=== PATIENT | female | born 1950 | race Caucasian/White ===

== ENCOUNTER 2016-04-13 09:45 | Emergency (ER) | payer MEDICARE, BC ==
[2016-04-13 09:58] VITALS: RESP 18
[2016-04-13] MEDS ORDERED: RX INFO: IV CONTRAST WAS GIVEN 1 EACH MISC MISCELLANE PRN (10:09)
--- NOTE | 2016-04-13 10:23 | ED ---
Abdominal Pain HPI - General Chief Complaint: Abdominal Pain Stated Complaint: bleeding post op, ostomy Time Seen by Provider: 04/13/16 10:02 Source: patient Mode of arrival: wheelchair Limitations: no limitations - History of Present Illness Initial Comments: This is a 66-year-old female with a history of rectal cancer status post resection with a ostomy and she had subsequent development of a mucocutaneous fistula. She is being followed by Dr. Todd Martinez. She's had the ostomy for approximate 7 years and she's had become cutaneous fistula for quite some time as well. She has been deemed not candidate for surgical intervention because of her heavy smoking history and breathing issues. The patient states that last night she was lifting nothing heavier and felt a little bit more pain around the site of the fistula. Also started oozing blood last night. Her sister covered with a nonadherent dressing and try to get her in to Dr. Ying's office however was unable to get her in. She was directed to the emergency department the patient does admit to generalized abdominal discomfort for the last few days. She denies any nausea or vomiting. She's had normal output from the ostomy. No bleeding or problems with the ostomy. No lightheadedness or chest pain. No other complaints. - Related Data Home Medications Medication Instructions Recorded Confirmed Albuterol Inhaler [Ventolin Hfa 1 - 2 puff INHALATION RT-Q4H PRN 04/13/16 Inhaler] Citalopram Hydrobromide [CeleXA] 40 mg PO DAILY 04/13/16 04/13/16 Fluticasone/Vilanterol [Breo 1 inhalation PO RT-DAILY 04/13/16 04/13/16 Ellipta 100-25 Mcg Inhaler] Ibuprofen [Motrin] 400 - 800 mg PO Q6HR PRN 04/13/16 04/13/16 Mirtazapine [Remeron] 15 mg PO HS 04/13/16 04/13/16 Tiotropium 18 Mcg/Puff [Spiriva] 1 cap INHALATION RT-DAILY 04/13/16 04/13/16 metFORMIN HCL [Glucophage] 500 mg PO BID 04/13/16 04/13/16 Previous Rx's Medication Instructions Recorded HYDROcodone/APAP 5-325MG [[place] 1 tab PO Q6HR PRN #15 tab 04/13/16 5-325] Allergies Allergy/AdvReac Type Severity Reaction Status Date / Time No Known Allergies Allergy Verified 04/13/16 10:13 Review of Systems ROS Statement: Those systems with pertinent positive or pertinent negative responses have been documented in the HPI. ROS Other: All systems not noted in ROS Statement are negative. Past Medical History Past Medical History: COPD, Diabetes Mellitus, Sleep Apnea/CPAP/BIPAP History of Any Multi-Drug Resistant Organisms: None Reported Past Surgical History: Bowel Resection Additional Past Surgical History / Comment(s): ilieostomy rectal mass Past Psychological History: Depression Smoking Status: Current every day smoker Past Alcohol Use History: None Reported Past Drug Use History: None Reported General Exam - General Exam Comments Initial Comments: Constitutional: Awake alert Appears comfortable Head: Normocephalic atraumatic Eyes: no conjunctival injection No scleral icterus EOMI Neck: No JVD Supple Heart: Regular rate rhythm normal S1-S2 no murmurs Lungs: Clear to auscultation bilaterally No wheezing No rales Abdomen: Soft, left sided abdominal ostomy appears patent and is draining stool. There is a fistula present just midline to the ostomy that does not appear to be draining any fluid. Has some mild oozing of blood. It appears that the dermis is split around the fistula. There is underlying herniation as well. The patient does have some generalized abdominal discomfort however no rebound or guarding Extremities: Non edematous DP pulses intact Radial pulses intact Neuro: A&Ox3 No focal neurologic deficits Psych: Appropriate mood and affect Limitations: no limitations Course Vital Signs 04/13/16 09:52 Temperature 98.4 F Pulse Rate 73 Respiratory 18 Rate Blood Pressure 136/70 O2 Sat by Pulse 93 L Oximetry Medical Decision Making - Medical Decision Making This is a 66-year-old female who presents emergency department for bleeding from a known fistula. It looks like the skin was split at that area. Labwork was reviewed and unremarkable for any anemia or leukocytosis. Computed tomography scan did not show any acute findings. I spoke with Dr. Ellington who is on-call for Dr. Todd Martinez and recommended follow-up next week. I did give the patient some pain medication for her abdominal pain that she can use as needed. Otherwise she can follow-up with Dr. Todd Martinez. She can return if she has worsening symptoms are all questions were answered. - Lab Data Result diagrams: 04/13/16 11:00 04/13/16 11:00 Lab Results 04/13/16 04/13/16 04/13/16 Range/Units 11:00 11:00 11:00 WBC 7.6 (3.8-10.6) k/uL RBC 4.64 (3.80-5.40) m/uL Hgb 13.2 (11.4-16.0) gm/dL Hct 41.4 (34.0-46.0) % MCV 89.2 (80.0-100.0) fL MCH 28.5 (25.0-35.0) pg MCHC 32.0 (31.0-37.0) g/dL RDW 13.9 (11.5-15.5) % Plt Count 130 L (150-450) k/uL Neutrophils % 74 % Lymphocytes % 16 % Monocytes % 6 % Eosinophils % 2 % Basophils % 1 % Neutrophils # 5.6 (1.3-7.7) k/uL Lymphocytes # 1.2 (1.0-4.8) k/uL Monocytes # 0.5 (0-1.0) k/uL Eosinophils # 0.2 (0-0.7) k/uL Basophils # 0.0 (0-0.2) k/uL Sodium 137 (137-145) mmol/L Potassium 4.9 (3.5-5.1) mmol/L Chloride 104 (98-107) mmol/L Carbon Dioxide 25 (22-30) mmol/L Anion Gap 8 mmol/L BUN 10 (7-17) mg/dL Creatinine 0.60 (0.52-1.04) mg/dL Est GFR (MDRD) Af Amer >60 (>60 ml/min/1.73 sqM) Est GFR (MDRD) Non-Af >60 (>60 ml/min/1.73 sqM) Glucose 261 H (74-99) mg/dL Calcium 8.8 (8.4-10.2) mg/dL Total Bilirubin 1.0 (0.2-1.3) mg/dL AST 127 H (14-36) U/L ALT 90 H (9-52) U/L Alkaline Phosphatase 210 H (38-126) U/L Total Protein 6.9 (6.3-8.2) g/dL Albumin 3.7 (3.5-5.0) g/dL Amylase 33 (30-110) U/L Lipase 113 (23-300) U/L Blood Type O Positive Blood Type Recheck No Antibody Screen NEGATIVE Spec Expiration Date 04/16/2016 - 2299 Disposition Clinical Impression: Cutaneous fistula, Abdominal pain Disposition: HOME SELF-CARE Condition: Stable Instructions: Abdominal Pain (ED) Prescriptions: HYDROcodone/APAP 5-325MG [[place] 5-325] 1 tab PO Q6HR PRN #15 tab PRN Reason: Pain Referrals: Romario Maldonado DO [Primary Care Provider] - 1-2 days
[2016-04-13 11:23] LABS: Basophils % (A) 1 %; CH 29.1; CHCM 32.8; Eosinophils # (A) 0.2 k/uL (0-0.7); Eosinophils % (A) 2 %; HCT 41.4 % (34.0-46.0); HDW 2.41; HGB 13.2 gm/dL (11.4-16.0); Luc # (Auto) 0.09; Luc % (Auto) 1; Lymphocytes # (A) 1.2 k/uL (1.0-4.8); Lymphocytes % (A) 16 %; MCH 28.5 pg (25.0-35.0); MCV 89.2 fL (80.0-100.0); Mean Platelet Volume 9.3; Monocytes # (A) 0.5 k/uL (0-1.0); Monocytes % (A) 6 %; Neutrophils # (A) 5.6 k/uL (1.3-7.7); Neutrophils % (A) 74 %; RBC 4.64 m/uL (3.80-5.40); RDW 13.9 % (11.5-15.5); WBC 7.6 k/uL (3.8-10.6); WBC (Perox) 7.62
[2016-04-13 11:26] LABS: ALT 90 U/L (9-52); AST 127 U/L (14-36); Alkaline Phosphatase 210 U/L (38-126); Amylase 33 U/L (30-110); Anion Gap 8 mmol/L; Blood Urea Nitrogen 10 mg/dL (7-17); Calcium 8.8 mg/dL (8.4-10.2); Carbon Dioxide 25 mmol/L (22-30); Chloride 104 mmol/L (98-107); Glucose 261 mg/dL (74-99); Non-African American GFR(MDRD) >60 (>60 ml/min/1.73 sqM); Potassium 4.9 mmol/L (3.5-5.1); Sodium 137 mmol/L (137-145); Total Protein 6.9 g/dL (6.3-8.2)
--- NOTE | 2016-04-13 12:12 | CT ---
EXAMINATION TYPE: CT abdomen pelvis w con DATE OF EXAM: 04/13/2016 12:00 PM HISTORY: stoma pain and bleeding CT DLP: 1595mGycm Automated Exposure Control for Dose Reduction was Utilized. CONTRAST: CT scan of the abdomen and pelvis is performed without oral but with IV Contrast, patient injected wi th 100 mL of Omnipaque 300. COMPARISON: None. FINDINGS: LUNG BASES: Some linear scarring and/or atelectatic change in both lung bases is noted. LIVER/GB: Gallbladder is not visualized and presumed surgically absent. Liver is low dense suggesting fatty infiltration. PANCREAS: No significant abnormality is seen. SPLEEN: No significant abnormality is seen. ADRENALS: No significant abnormality is seen. KIDNEYS: No significant abnormality is seen. BOWEL: Evaluation of bowel is suboptimal due to lack of enteric contrast. There is however no suspici ous small or large bowel dilatation. Decompressed stomach is evident. There is left mid abdominal ostomy. There is a small parastomal hernia containing nondilated bowel in ferior and medial to ostomy. Just inferior to this there is a [place] ventral wall hernia extending to right of midline containing portion of nondilated small and large bowel loops. UTERUS/ADNEXA: There is suboptimal evaluation due to streak artifact from hip surgery in the lower ut erine segment. Visualized superior portion of uterus is within normal limits. No suspicious adnexal m asses are identified. LYMPH NODES: No greater than 1cm abdominal or pelvic lymph nodes are appreciated. OSSEOUS STRUCTURES: Metallic hardware from bilateral hip arthroplasties causes streak artifact limiti ng evaluation of pelvic structures. Some disc space narrowing with vacuum disc phenomenon at lumbosac ral junction is noted. Facet arthropathy lower lumbar levels is seen. OTHER: There is fat-containing ventral wall hernia in the midline above the umbilicus. There is mild to moderate atherosclerotic change of aorta. Slight ectasia of the infrarenal abdominal aorta is present. No greater than 3 cm aneurysmal change is seen. IMPRESSION: There is parastomal hernia and several ventral wall hernias, no bowel obstruction is evid ent. No significant finding is seen to account for parastomal bleeding.
[2016-04-13 12:34] VITALS: PULSE 68
[2016-04-13 13:03] VITALS: BP 131/89; TEMP 98.3
== END 2016-04-13 13:03 | disposition home or self-care (01) ==
LOC: EC 09:45
DX: K63.2 Fistula of intestine (principal); R10.9 Unspecified abdominal pain; G47.30 Sleep apnea, unspecified; J44.9 Chronic obstructive pulmonary disease, unspecified; E11.9 Type 2 diabetes mellitus without complications; F32.9 Major depressive disorder, single episode, unspecified; F17.200 Nicotine dependence, unspecified, uncomplicated; Z93.2 Ileostomy status; Z79.84 Long term (current) use of oral hypoglycemic drugs; Z85.048 Personal history of other malignant neoplasm of rectum, rectosigmoid junction, and anus; Z79.899 Other long term (current) drug therapy
CPT/HCPCS: 36415; 86900; 86901; 80053; 82150; 83690; 85025; 86850; 74177; 99284; Q9967

== ENCOUNTER 2016-04-23 10:17 | Emergency (ER) | payer MEDICARE, BC ==
--- NOTE | 2016-04-23 10:51 | ED ---
General Adult HPI - General Chief complaint: Recheck/Abnormal Lab/Rx Stated complaint: FISTULA OUTPUTTING BLOODCLOTS Time Seen by Provider: 04/23/16 10:36 Source: patient Mode of arrival: ambulatory Limitations: no limitations - History of Present Illness Initial comments: Patient is a 66-year-old female with history of COPD, diabetes, colon cancer status post bowel resection with Dr. Todd Martinez presenting with bleeding from mucous cutaneous fistula. Patient states sore has been there for several weeks now - at least 4-5 weeks. Patient states her sore will intermittently bleed. Patient is not on aspirin or Coumadin. Patient states she's had several episodes over the past 10 days from her last ER visit. Patient had an unremarkable CAT scan at that time. Hemoglobin was 13.2. She is able to control it with direct pressure but does notice when it bleeds or clots. Patient follow-up with Dr. Todd Martinez on Monday for which she recommended patient to see Dr. Costello. Patient denies fever, chills, chest pain, shortness breath. Admits to normal stool output. - Related Data Home Medications Medication Instructions Recorded Confirmed Albuterol Inhaler [Ventolin Hfa 1 - 2 puff INHALATION RT-Q4H PRN 04/13/16 Inhaler] Citalopram Hydrobromide [CeleXA] 40 mg PO DAILY 04/13/16 04/23/16 Fluticasone/Vilanterol [Breo 1 inhalation PO RT-DAILY 04/13/16 04/23/16 Ellipta 100-25 Mcg Inhaler] Ibuprofen [Motrin] 400 - 800 mg PO Q6HR PRN 04/13/16 04/23/16 Mirtazapine [Remeron] 15 mg PO HS 04/13/16 04/23/16 Tiotropium 18 Mcg/Puff [Spiriva] 1 cap INHALATION RT-DAILY 04/13/16 04/23/16 metFORMIN HCL [Glucophage] 500 mg PO BID 04/13/16 04/23/16 Previous Rx's Medication Instructions Recorded HYDROcodone/APAP 5-325MG [[place] 1 tab PO Q6HR PRN #15 tab 04/13/16 5-325] Dicyclomine [Bentyl] 20 mg PO QID #20 tablet 04/23/16 Allergies Allergy/AdvReac Type Severity Reaction Status Date / Time No Known Allergies Allergy Verified 04/23/16 10:30 Review of Systems ROS Statement: Those systems with pertinent positive or pertinent negative responses have been documented in the HPI. Constitutional: No fever and no chills. HENT: No congestion, no rhinorrhea and no sore throat. Eyes: No discharge and no redness. Respiratory: No cough and no shortness of breath. Cardiovascular: No chest pain and no palpitations. Gastrointestinal: No nausea, +vomiting intermittently which is normal for her, no abdominal pain and no diarrhea. Genitourinary: No dysuria and no hematuria. Musculoskeletal: No back pain and no arthralgias. Skin: +wound, No pallor and no rash. Neurological: No dizziness and No headaches. ROS Other: All systems not noted in ROS Statement are negative. Past Medical History Past Medical History: COPD, Diabetes Mellitus, Sleep Apnea/CPAP/BIPAP History of Any Multi-Drug Resistant Organisms: None Reported Past Surgical History: Bowel Resection Additional Past Surgical History / Comment(s): ilieostomy rectal mass Past Psychological History: Depression Smoking Status: Current every day smoker Past Alcohol Use History: None Reported Past Drug Use History: None Reported General Exam - General Exam Comments Initial Comments: Constitutional: Patient appears well-developed and well-nourished. No distress. Head: Normocephalic and atraumatic. Eyes: Conjunctivae and EOM are normal. Right eye exhibits no discharge. Left eye exhibits no discharge. No scleral icterus. Neck: Normal range of motion. Neck supple. Cardiovascular: Normal rate and regular rhythm. No murmur heard. Pulmonary/Chest: Effort normal and breath sounds normal. No respiratory distress. No wheezes. Abdominal: Abdomen is soft. Post surgical changes to abdomen. Left lower colostomy with stool output. Stoma is pink. Midline scar present with mucous cutaneous fistula right of midline approximately 3 cm. No active bleeding but pink. Right of midline abdominal hernia which is reducible. Musculoskeletal: Normal range of motion. No edema or tenderness. Neurological: Patient alert and oriented to person, place, and time. Skin: Skin is warm and dry. Not diaphoretic. Non-pallor. Nursing notes and vitals reviewed. Limitations: no limitations Course Vital Signs 04/23/16 10:25 Temperature 99.1 F Pulse Rate 76 Respiratory 18 Rate Blood Pressure 129/62 O2 Sat by Pulse 93 L Oximetry - Reevaluation(s) Reevaluation #1: 04/23/16 12:03 Patient without any further bleeding while here. Updated on results and agreeable to outpatient follow-up. Medical Decision Making - Medical Decision Making Patient is a 66-year-old female presenting with mucous cutaneous fistula and bleeding episodes. Patient is not anticoagulated or on full aspirin. Patient without bleeding on initial evaluation. No further bleeding or course of visit. Patient's hemoglobin 10 days ago was 13.2 tenths 14.4. Patient with abdominal x-ray unremarkable for ileus or small bowel obstruction. Patient requesting something for crampy abdominal pain for which RX for Bentyl was provided. Prior to discharge, patient was resting comfortably in bed. Course of stay improved. Denies pain. Discussed physical exam and diagnostic tests with patient. Questions answered and patient is agreeable to discharge with close follow up with Primary Care Physician/GI. Instructed to return to Emergency Department if symptoms worsen. - Lab Data Result diagrams: 04/23/16 11:05 04/23/16 11:05 Lab Results 04/23/16 04/23/16 04/23/16 Range/Units 11:05 11:05 11:05 WBC 11.1 H (3.8-10.6) k/uL RBC 5.04 (3.80-5.40) m/uL Hgb 14.4 (11.4-16.0) gm/dL Hct 45.6 (34.0-46.0) % MCV 90.4 (80.0-100.0) fL MCH 28.5 (25.0-35.0) pg MCHC 31.5 (31.0-37.0) g/dL RDW 14.2 (11.5-15.5) % Plt Count 211 (150-450) k/uL Neutrophils % 73 % Lymphocytes % 16 % Monocytes % 7 % Eosinophils % 2 % Basophils % 0 % Neutrophils # 8.1 H (1.3-7.7) k/uL Lymphocytes # 1.8 (1.0-4.8) k/uL Monocytes # 0.8 (0-1.0) k/uL Eosinophils # 0.2 (0-0.7) k/uL Basophils # 0.0 (0-0.2) k/uL Hypochromasia Slight Sodium 141 (137-145) mmol/L Potassium 4.8 (3.5-5.1) mmol/L Chloride 108 H (98-107) mmol/L Carbon Dioxide 23 (22-30) mmol/L Anion Gap 10 mmol/L BUN 13 (7-17) mg/dL Creatinine 0.60 (0.52-1.04) mg/dL Est GFR (MDRD) Af Amer >60 (>60 ml/min/1.73 sqM) Est GFR (MDRD) Non-Af >60 (>60 ml/min/1.73 sqM) Glucose 250 H (74-99) mg/dL Calcium 8.9 (8.4-10.2) mg/dL Blood Type O Positive Blood Type Recheck No Antibody Screen NEGATIVE Spec Expiration Date 04/26/2016 - 2304 Disposition Clinical Impression: Encounter for evaluation of wound, Bleeding, Abdominal cramping Disposition: HOME SELF-CARE Condition: Good Instructions: Abdominal Pain (ED), Acute Wound Care (ED), Wound Healing and Your Diet (ED) Prescriptions: Dicyclomine [Bentyl] 20 mg PO QID #20 tablet Referrals: Romario Maldonado DO [Primary Care Provider] - 1-2 days Delvis Costello MD [STAFF PHYSICIAN] - 1-2 days
[2016-04-23 11:18] LABS: Basophils % (A) 0 %; CH 28.5; CHCM 31.7; Eosinophils # (A) 0.2 k/uL (0-0.7); Eosinophils % (A) 2 %; HCT 45.6 % (34.0-46.0); HGB 14.4 gm/dL (11.4-16.0); Hypochromasia Slight; Luc # (Auto) 0.15; Luc % (Auto) 1; Lymphocytes # (A) 1.8 k/uL (1.0-4.8); Lymphocytes % (A) 16 %; MCH 28.5 pg (25.0-35.0); MCHC 31.5 g/dL (31.0-37.0); MCV 90.4 fL (80.0-100.0); Mean Platelet Volume 7.6; Monocytes # (A) 0.8 k/uL (0-1.0); Monocytes % (A) 7 %; Neutrophils # (A) 8.1 k/uL (1.3-7.7); Neutrophils % (A) 73 %; RBC 5.04 m/uL (3.80-5.40); RDW 14.2 % (11.5-15.5); WBC 11.1 k/uL (3.8-10.6); WBC (Perox) 11.08
[2016-04-23 11:27] LABS: Anion Gap 10 mmol/L; Blood Urea Nitrogen 13 mg/dL (7-17); Calcium 8.9 mg/dL (8.4-10.2); Carbon Dioxide 23 mmol/L (22-30); Chloride 108 mmol/L (98-107); Glucose 250 mg/dL (74-99); Non-African American GFR(MDRD) >60 (>60 ml/min/1.73 sqM); Potassium 4.8 mmol/L (3.5-5.1); Sodium 141 mmol/L (137-145)
--- NOTE | 2016-04-23 11:36 | XR ---
EXAMINATION TYPE: XR abdomen complete w decub DATE OF EXAM: 04/23/2016 11:30 AM CLINICAL HISTORY: Abdominal pain not further specified. TECHNIQUE: Supine, upright, and left side down lateral decubitus views of the abdomen are obtained. COMPARISON: Recent CT abdomen and pelvis study April 13, 2016. FINDINGS: Some paucity of bowel gas is present. Visualized gas is noted in nondistended small and lar ge bowel loops. No suspicious air-fluid levels are seen. Metallic hardware from bilateral hip surgery is partially imaged. There is left basilar scarring or atelectatic change. No pneumoperitoneum is no ondina. IMPRESSION: Overall nonspecific favor nonobstructive bowel gas pattern.
[2016-04-23 12:04] VITALS: BP 134/62; PULSE 73; RESP 16; TEMP 98.2
== END 2016-04-23 12:04 | disposition home or self-care (01) ==
LOC: EC 10:17
DX: T82.838A Hemorrhage due to vascular prosthetic devices, implants and grafts, initial encounter (principal); R10.9 Unspecified abdominal pain; J44.9 Chronic obstructive pulmonary disease, unspecified; E11.9 Type 2 diabetes mellitus without complications; F17.210 Nicotine dependence, cigarettes, uncomplicated; Z79.899 Other long term (current) drug therapy; Z79.51 Long term (current) use of inhaled steroids; Z79.84 Long term (current) use of oral hypoglycemic drugs
CPT/HCPCS: 36415; 74020; 80048; 85025; 86850; 86900; 86901; 99284

== ENCOUNTER 2016-10-31 14:55 | Inpatient (IN) | payer MEDICARE, BC ==
[2016-10-31] MEDS ORDERED: MORPHINE SULFATE 4 MG/ML SYRINGE IVP STA (15:00)
[2016-10-31] MEDS ORDERED: ONDANSETRON 4 MG/2 ML VIAL IVP PRN ×2 (15:00→18:35)
[2016-10-31] MEDS ORDERED: MORPHINE SULFATE 4 MG/ML SYRINGE IVP PRN (15:00)
[2016-10-31] MEDS ORDERED: PANTOPRAZOLE 40 MG/10 ML VIAL IVP STA (15:00)
[2016-10-31] MEDS ORDERED: SODIUM CHLORIDE 0.9% 1,000 ML IV ONE (15:00)
--- NOTE | 2016-10-31 15:04 | ED ---
General Adult HPI - General Stated complaint: Poss Bowel Obs. Time Seen by Provider: 10/31/16 15:00 Source: RN notes reviewed, old records reviewed - History of Present Illness Initial comments: This is a 66-year-old female VFA evaluation. Patient presents today for evaluation of abdominal pain. Patient was sent him in transfer regarding the small bowel obstruction. Patient does follow with surgeon at this hospital. Patient is asked to no output, per transfer records and speaking a transient physician-patient also is having some bowel pain and I CAT scan had small bowel obstruction. Patient suffered this time is no pain. No active nausea or vomiting - Related Data Home Medications Medication Instructions Recorded Confirmed Albuterol Inhaler [Ventolin Hfa 1 - 2 puff INHALATION RT-Q4H PRN 04/13/16 Inhaler] Citalopram Hydrobromide [CeleXA] 40 mg PO DAILY 04/13/16 04/23/16 Fluticasone/Vilanterol [Breo 1 inhalation PO RT-DAILY 04/13/16 04/23/16 Ellipta 100-25 Mcg Inhaler] Ibuprofen [Motrin] 400 - 800 mg PO Q6HR PRN 04/13/16 04/23/16 Mirtazapine [Remeron] 15 mg PO HS 04/13/16 04/23/16 Tiotropium 18 Mcg/Puff [Spiriva] 1 cap INHALATION RT-DAILY 04/13/16 04/23/16 metFORMIN HCL [Glucophage] 500 mg PO BID 04/13/16 04/23/16 Previous Rx's Medication Instructions Recorded HYDROcodone/APAP 5-325MG [[place] 1 tab PO Q6HR PRN #15 tab 04/13/16 5-325] Dicyclomine [Bentyl] 20 mg PO QID #20 tablet 04/23/16 Allergies Allergy/AdvReac Type Severity Reaction Status Date / Time No Known Allergies Allergy Verified 04/23/16 10:30 Review of Systems ROS Statement: Those systems with pertinent positive or pertinent negative responses have been documented in the HPI. ROS Other: All systems not noted in ROS Statement are negative. Past Medical History Past Medical History: COPD, Diabetes Mellitus, Sleep Apnea/CPAP/BIPAP History of Any Multi-Drug Resistant Organisms: None Reported Past Surgical History: Bowel Resection Additional Past Surgical History / Comment(s): ilieostomy rectal mass Past Psychological History: Depression Smoking Status: Current every day smoker Past Alcohol Use History: None Reported Past Drug Use History: None Reported General Exam General appearance: alert, in no apparent distress Head exam: Present: atraumatic, normocephalic, normal inspection Eye exam: Present: normal appearance, PERRL, EOMI. Absent: scleral icterus, conjunctival injection, periorbital swelling ENT exam: Present: normal exam, mucous membranes moist Neck exam: Present: normal inspection. Absent: tenderness, meningismus, lymphadenopathy Respiratory exam: Present: normal lung sounds bilaterally. Absent: respiratory distress, wheezes, rales, rhonchi, stridor Cardiovascular Exam: Present: regular rate, normal rhythm, normal heart sounds. Absent: systolic murmur, diastolic murmur, rubs, gallop, clicks GI/Abdominal exam: Present: soft, normal bowel sounds. Absent: distended, tenderness, guarding, rebound, rigid Extremities exam: Present: normal inspection, full ROM, normal capillary refill. Absent: tenderness, pedal edema, joint swelling, calf tenderness Back exam: Present: normal inspection Neurological exam: Present: alert, oriented X3, CN II-XII intact Psychiatric exam: Present: normal affect, normal mood Skin exam: Present: warm, dry, intact, normal color. Absent: rash Course - Reevaluation(s) Reevaluation #1: 10/31/16 15:03 Patient has no pain at this time Reevaluation #2: 10/31/16 15:03 Transfer paperwork is thoroughly reviewed Medical Decision Making - Medical Decision Making 66 female to the ER stretcher patient work faster patient positive SBL, patient' s surgeon is at [facility], [facility], patient be admitted for nothing by mouth symptom management and IV fluid. Disposition Clinical Impression: SBO (small bowel obstruction) Disposition: ADMITTED IP TO THIS [facility] Condition: Good Referrals: None,Stated [Primary Care Provider] - 1-2 days
[2016-10-31] MEDS: INSULIN LISPRO (humaLOG) 300 UNIT/3 ML VIAL SQ SCH (20:52)
[2016-10-31 20:55] LABS: Glucose,Whole Blood 108 mg/dL (75-99)
[2016-10-31] MEDS: SYMBICORT 80-4.5 MCG INHALER INHALATION SCH (21:19)
[2016-10-31 21:45] LABS: Magnesium 1.9 mg/dL (1.6-2.3)
[2016-10-31] MEDS: MORPHINE SULFATE 2 MG/ML SYRINGE IVP PRN (21:55)
[2016-11-01 00:42] LABS: Glucose,Whole Blood 106 mg/dL (75-99)
[2016-11-01] MEDS: MORPHINE SULFATE 2 MG/ML SYRINGE IVP PRN ×6 (00:54→22:23)
[2016-11-01] MEDS: BENZOCAINE/MENTHOL LOZENG 1 EACH LOZENGE MUCOUS MEM PRN ×4 (01:00→21:14)
[2016-11-01 05:27] LABS: Glucose,Whole Blood 95 mg/dL (75-99)
[2016-11-01] MEDS: ENOXAPARIN 40 MG/0.4 ML SYRINGE SQ SCH (07:35)
[2016-11-01] MEDS: PANTOPRAZOLE 40 MG/10 ML VIAL IVP SCH (07:35)
[2016-11-01 07:42] LABS: ALT 99 U/L (9-52); AST 100 U/L (14-36); Alkaline Phosphatase 119 U/L (38-126); Anion Gap 7 mmol/L; Blood Urea Nitrogen 15 mg/dL (7-17); Calcium 8.5 mg/dL (8.4-10.2); Carbon Dioxide 20 mmol/L (22-30); Chloride 111 mmol/L (98-107); Glucose 82 mg/dL (74-99); Non-African American GFR(MDRD) >60 (>60 ml/min/1.73 sqM); Potassium 4.3 mmol/L (3.5-5.1); Sodium 138 mmol/L (137-145); Total Bilirubin 1.2 mg/dL (0.2-1.3); Total Protein 5.9 g/dL (6.3-8.2)
--- NOTE | 2016-11-01 09:03 | US ---
EXAMINATION TYPE: US abdomen complete DATE OF EXAM: 11/01/2016 COMPARISON: CT, US CLINICAL HISTORY: sbo. Inpatient for Small bowel obstruction; ileostomy, ileostomy,ventral hernia; c/ o midline and pelvic pain; cholecystectomy; currently has N/G tube in place EXAM MEASUREMENTS: Liver Length: 13.8 cm Gallbladder Wall: surgically removed CBD: 1.2 cm Spleen: 8.5 cm Right Kidney: 9.7 x 4.6 x 3.8 cm Left Kidney: 9.1 x 4.1 x 3.9 cm Pancreas: Tail obscured by overlying bowel gas Liver: no masses seen Gallbladder: surgically removed Evidence for sonographic Ji's sign: No CBD: abnormally prominent post cholecystectomy Spleen: wnl Right Kidney: No hydronephrosis or masses seen Left Kidney: mid cortical cyst = 0.5 x 0.6 x 0.6cm Upper IVC: wnl Abd Aorta: mild intimal thickening, but size is wnl; partially gassed out The pancreas is poorly visualized. The graft the liver is normal in size without evidence of biliary dilatation. The gallbladder is been removed. Distal common hepatic duct measures 1.2 cm. The spleen is normal in size. The right kidney is normal. There is a hypoechoic lesion in the mid polar region of the left kidney m easuring 5 x 6.6 mm. This does not meet the requirements of a simple cyst. Limited views of the aorta and IVC are unremarkable. IMPRESSION: 1. STATUS POST CHOLECYSTECTOMY. 2. HYPOECHOIC LESION IN THE MID POLAR REGION OF THE LEFT KIDNEY DOES NOT MEET THE REQUIREMENTS OF A S IMPLE CYST. FURTHER IMAGING WITH CT OR MR WOULD BE SUGGESTED.
[2016-11-01] MEDS: INSULIN LISPRO (humaLOG) 300 UNIT/3 ML VIAL SQ SCH ×4 (09:29→21:20)
--- NOTE | 2016-11-01 09:41 | P.GSCN ---
History of Present Illness Consult date: 11/01/16 Reason for Consult: Abdominal pain Requesting physician: Andrea De Jesus History of present illness: This is a 66-year-old female whose primary surgeon is Dr. Powers presented as a transfer from [facility] to [facility] to be admitted to the attending who requested surgical eval for abdominal pain workup patient's sister at the bedside providing additional health history. Apparently the patient last Monday was lifting up a renee developed abdominal pain followed by nausea vomiting. According to the patient the nausea vomiting persist over the weekend there was a concern that she could not keep anything down and that she needed to be seen for persistent abdominal pain associated with the nausea vomiting. Patient gives a history of having seen Dr. Powers in 2007 at which time a mass was removed from the rectum which was benign with a ileostomy According to the patient's ostomy has been functioning up until the weekend when there was no output. Subsequently the patient was seen in [facility] according to the sister who is an RN they indicated at the hospital CAT scan showed small bowel obstruction. Patient was transferred. Currently this morning nasal gastric tube is in place this been no further nausea vomiting patient states abdominal pain has improved. There is a moderate amount of ostomy movement liquid stool in the ostomy bag. Ultrasound of the abdomen done this morning reviewing the report indicates gallbladder surgically absent right kidney no hydronephrosis no mass the left kidney assist 0.6 cm. Pancreas poorly visualized. Labs were reviewed AST 100 ALT 99 lipase 88 magnesium 1.9 the CAT scan of the abdomen and pelvis that was done at [facility] was reviewed by Dr. Brooks Review of Systems Essentially unremarkable except as mentioned in the present illness Past Medical History Past Medical History: Asthma, COPD, Diabetes Mellitus, Osteoarthritis (OA), Pneumonia Additional Past Medical History / Comment(s): sinus problems, colon polyps,past " rectal mass - pt stated was'nt cancer""had sx w/ ileostomy(pt stated her normal stool is loose watery), compression fx x3 in past. History of Any Multi-Drug Resistant Organisms: None Reported Past Surgical History: Bowel Resection, Cholecystectomy, Tonsillectomy Additional Past Surgical History / Comment(s): ilieostomy / rectal mass .colonoscopy, lt breast mammory gland removed Past Anesthesia/Blood Transfusion Reactions: No Reported Reaction Smoking Status: Current every day smoker - Past Family History Father History Unknown: Yes Mother History Unknown: Yes Medications and Allergies Home Medications Medication Instructions Recorded Confirmed Type Albuterol Inhaler [Ventolin Hfa 1 - 2 puff INHALATION RT-Q4H PRN 04/13/16 History Inhaler] Citalopram Hydrobromide [CeleXA] 40 mg PO DAILY 04/13/16 10/31/16 History Mirtazapine [Remeron] 15 mg PO HS 04/13/16 10/31/16 History Tiotropium 18 Mcg/Puff [Spiriva] 1 cap INHALATION RT-DAILY 04/13/16 10/31/16 History metFORMIN HCL [Glucophage] 500 mg PO BID 04/13/16 10/31/16 History Fluticasone/Vilanterol [Breo 1 inhalation INHALATION RT-DAILY 10/31/16 10/31/16 History Ellipta 200-25 Mcg INH] Allergies Allergy/AdvReac Type Severity Reaction Status Date / Time No Known Allergies Allergy Verified 10/31/16 15:26 Surgical - Exam Vital Signs Temp Pulse Resp BP Pulse Ox 98.6 F 99 18 115/63 99 10/31/16 15:04 10/31/16 15:04 10/31/16 15:04 10/31/16 15:04 10/31/16 15:04 GENERAL APPEARANCE: 66-year-old female patient is alert, oriented 3, in no acute distress. VITAL SIGNS: Reviewed HEENT: Head is normocephalic and atraumatic. Pupils are equal and reactive. The nares are patent. Oropharynx is clear without lesions. NECK: Supple without lymphadenopathy. Traches midline. HEART: S1, S2. Regular rate and rhythm. No murmur denying chest pain adequate LUNGS: No crackles or wheezes are heard. Adequate air entry on room air sats are 92% ABDOMEN: Soft, nontender, nondistended with good bowel sounds. No peritoneal signs. No palpable organomegaly or masses. Ostomy left lower quadrant amount of liquid stool in ostomy bag bowel tones present umbilical area . Stomal hernia noted no bleeding noted a ventral wall hernia in the midline above the umbilicus noted no bleeding noted Extremities Normal skin color and turgor. No cyanosis, rash, ulceration, clubbing or edema. Radial pedal pulses are 2/4 bilaterally. NEUROLOGICAL: No focal deficits. Strength and sensation are grossly intact. Results - Labs 11/03/16 06:51 11/03/16 06:51 Abnormal Lab Results - Last 24 Hours (Table) 10/31/16 11/01/16 11/01/16 Range/Units 20:45 00:40 06:46 Chloride 111 H (98-107) mmol/L Carbon Dioxide 20 L (22-30) mmol/L POC Glucose (mg/dL) 108 H 106 H (75-99) mg/dL AST 100 H (14-36) U/L ALT 99 H (9-52) U/L Total Protein 5.9 L (6.3-8.2) g/dL Albumin 3.2 L (3.5-5.0) g/dL Diabetes panel 11/01/16 Range/Units 06:46 Sodium 138 (137-145) mmol/L Potassium 4.3 (3.5-5.1) mmol/L Chloride 111 H (98-107) mmol/L Carbon Dioxide 20 L (22-30) mmol/L BUN 15 (7-17) mg/dL Creatinine 0.84 (0.52-1.04) mg/dL Glucose 82 (74-99) mg/dL Calcium 8.5 (8.4-10.2) mg/dL AST 100 H (14-36) U/L ALT 99 H (9-52) U/L Alkaline Phosphatase 119 (38-126) U/L Total Protein 5.9 L (6.3-8.2) g/dL Albumin 3.2 L (3.5-5.0) g/dL Calcium panel 11/01/16 Range/Units 06:46 Calcium 8.5 (8.4-10.2) mg/dL Albumin 3.2 L (3.5-5.0) g/dL Pituitary panel 11/01/16 Range/Units 06:46 Sodium 138 (137-145) mmol/L Potassium 4.3 (3.5-5.1) mmol/L Chloride 111 H (98-107) mmol/L Carbon Dioxide 20 L (22-30) mmol/L BUN 15 (7-17) mg/dL Creatinine 0.84 (0.52-1.04) mg/dL Glucose 82 (74-99) mg/dL Calcium 8.5 (8.4-10.2) mg/dL Adrenal panel 11/01/16 Range/Units 06:46 Sodium 138 (137-145) mmol/L Potassium 4.3 (3.5-5.1) mmol/L Chloride 111 H (98-107) mmol/L Carbon Dioxide 20 L (22-30) mmol/L BUN 15 (7-17) mg/dL Creatinine 0.84 (0.52-1.04) mg/dL Glucose 82 (74-99) mg/dL Calcium 8.5 (8.4-10.2) mg/dL Total Bilirubin 1.2 (0.2-1.3) mg/dL AST 100 H (14-36) U/L ALT 99 H (9-52) U/L Alkaline Phosphatase 119 (38-126) U/L Total Protein 5.9 L (6.3-8.2) g/dL Albumin 3.2 L (3.5-5.0) g/dL Assessment and Plan Plan: Impression Present on admission abdominal pain with persistent nausea vomiting suspect due to partial small bowel obstruction resolving Type 2 diabetes non-insulin History of a rectal mass the 2007 with an ileostomy Current every day smoker Depressive disorder nonspecified Ventral wall hernia present on admission chronic History of several ventral wall hernias History of COPD with no evidence of an exacerbation Plan Continue IV hydration Continue the nasogastric tube Increase activity Consult pulmonary for management of COPD DVT and GI prophylaxis Pain control No evidence of an acute surgical abdomen Further surgical recommendations pending Thank you for allowing us to participate in the surgical management of your patient further surgical recommendations are pending clinical course The above impression and plan of care have been discussed and directed by signing physician. Serenity Phelps nurse practitioner acting as scribe for signing physician.
[2016-11-01] MEDS ORDERED: SODIUM CHLORIDE 0.9% 1,000 ML IV SCH (10:00)
--- NOTE | 2016-11-01 10:15 | HP ---
CHIEF COMPLAINT: A 66-year-old white female with small bowel obstruction. HISTORY OF PRESENT ILLNESS: This is a 66-year-old white female with a history of colostomy 4 years ago, ventral hernias, developed more of a small bowel obstruction and sent to this hospital due to bowel obstruction and transferred for another tertiary center. CAT scan showed small bowel obstruction. Her stools out of her ileostomy pouch have been about 20% to 30% of her normal. No evidence of nausea or vomiting. NG tube was placed on the floor by myself and ordered, showed 200 mL right away out of the NG tube. Home medications include: 1. Celexa 40 mg daily. 2. Breo inhaler daily. 3. Spiriva daily. 4. Glucophage 500 b.i.d. She will be placed on Accu-Chek protocol. 5. Remeron 15 q.h.s. 6. Ventolin HFA p.r.n. Allergies are negative. She also takes medicines at home that include Bentyl 20 mg q.i.d. for IBS and Ragan 5/325 for pain. Fourteen-point review of systems negative except for what is mentioned in HPI. PAST MEDICAL HISTORY: COPD, diabetes mellitus, sleep apnea, bowel resection, ileostomy, rectal mass noncancerous, depression. A current everyday smoker. No alcohol. No illicit drugs. Currently she has 7 children. PHYSICAL EXAM: Vital signs are reviewed. PSYCH: She appears anxious and nervous. GI: She has colostomy intact, some light brown liquidy stool in the colostomy bag half full. CARDIAC: Swain S1 and S2. GI shows increased colostomy as mentioned above. She has a ventral hernia midline next to the colostomy bag about 4 inches x 4 inches x 2 inches. Slightly increased bowel sounds. EXTREMITIES: No cyanosis, clubbing or edema. ENT: ( ). NECK: Supple. No mass or organomegaly. BACK: Normal to inspection. SKIN: Warm, dry and intact. ASSESSMENT: 1. Small bowel obstruction, has NG tube in place. 2. History of depression. 3. Chronic obstructive pulmonary disease. 4. Nicotine addiction. Continue current home medications. NG tube will be placed. Updrafts will be given for COPD. Please see further orders. Await for surgical consultation. Monitor electrolytes. MTDD
[2016-11-01 10:33] LABS: Basophils % (A) 0 %; CH 29.6; CHCM 32.8; Eosinophils # (A) 0.2 k/uL (0-0.7); Eosinophils % (A) 2 %; HCT 43.8 % (34.0-46.0); HDW 2.29; HGB 14.8 gm/dL (11.4-16.0); Luc # (Auto) 0.14; Luc % (Auto) 2; Lymphocytes # (A) 1.6 k/uL (1.0-4.8); Lymphocytes % (A) 21 %; MCH 30.7 pg (25.0-35.0); MCHC 33.8 g/dL (31.0-37.0); MCV 90.7 fL (80.0-100.0); Mean Platelet Volume 9.2; Monocytes # (A) 0.6 k/uL (0-1.0); Monocytes % (A) 8 %; Neutrophils # (A) 5.1 k/uL (1.3-7.7); Neutrophils % (A) 67 %; RBC 4.83 m/uL (3.80-5.40); RDW 15.5 % (11.5-15.5); WBC 7.6 k/uL (3.8-10.6); WBC (Perox) 7.54
[2016-11-01 11:48] LABS: Glucose,Whole Blood 95 mg/dL (75-99)
[2016-11-01] MEDS: SYMBICORT 80-4.5 MCG INHALER INHALATION SCH ×3 (12:00→20:00)
[2016-11-01] MEDS: TIOTROPIUM 18 MCG/PUFF INHALER INHALATION SCH (12:00)
[2016-11-01] MEDS: ALBUTEROL NEBULIZED 2.5 MG/3 ML INHALATION PRN ×2 (12:09→20:00)
[2016-11-01 12:58] VITALS: BMI 24.0
[2016-11-01] MEDS: CITALOPRAM HYDROBROMIDE 20 MG TAB PO SCH (13:12)
--- NOTE | 2016-11-01 14:14 | P.CNPUL ---
History of Present Illness Consult date: 11/01/16 Requesting physician: Lila Garrido Reason for consult: COPD Chief complaint: Abdominal discomfort, nausea, vomiting History of present illness: This is a very pleasant 66-year-old female patient who has a history of diabetes mellitus, arthritis, alcoholism and depression with previous suicidal ideation. She also has a history of chronic obstructive disease with chronic and ongoing tobacco dependence. She is treated with Breo, Spiriva and albuterol. She stated these have been prescribed to her from previous admissions. She does not follow with a appraiser land in the outpatient setting. She also has a history of a benign rectal mass and is status post resection with diverting ostomy. He presented to [facility] with complaints of abdominal pain, nausea and vomiting. She does have abdominal hernias and a fistula. She had minimal output in her ostomy. She was transferred here for higher level of care for suspected bowel obstruction. She had been seen by surgical services and thus far conservative treatment. Nasogastric tube is in place. Ostomy has improved output. Her abdominal discomfort has subsided. Her NG tube is currently clamped. She is seen today in consultation on the surgical floor. She is currently awake and alert in no acute distress. She denies any worsening shortness of breath, cough or congestion. No wheezing, no dyspnea on exertion. She is maintaining good O2 saturations in the mid to upper 90s on room air. She's been afebrile. No leukocytosis. Hemoglobin stable. Hemodynamically stable. Elevated LFTs with AST 100, ALT of 99. Review of Systems 14 point review of system was conducted. All negative other than as mentioned in the HPI. Past Medical History Past Medical History: Asthma, COPD, Diabetes Mellitus, Osteoarthritis (OA), Pneumonia Additional Past Medical History / Comment(s): sinus problems, colon polyps,past " rectal mass - pt stated was'nt cancer""had sx w/ ileostomy(pt stated her normal stool is loose watery), compression fx x3 in past. History of Any Multi-Drug Resistant Organisms: None Reported Past Surgical History: Bowel Resection, Cholecystectomy, Tonsillectomy Additional Past Surgical History / Comment(s): ilieostomy / rectal mass .colonoscopy, lt breast mammory gland removed Past Anesthesia/Blood Transfusion Reactions: No Reported Reaction Smoking Status: Current every day smoker - Past Family History Father History Unknown: Yes Mother History Unknown: Yes Medications and Allergies Home Medications Medication Instructions Recorded Confirmed Type Albuterol Inhaler [Ventolin Hfa 1 - 2 puff INHALATION RT-Q4H PRN 04/13/16 History Inhaler] Citalopram Hydrobromide [CeleXA] 40 mg PO DAILY 04/13/16 10/31/16 History Mirtazapine [Remeron] 15 mg PO HS 04/13/16 10/31/16 History Tiotropium 18 Mcg/Puff [Spiriva] 1 cap INHALATION RT-DAILY 04/13/16 10/31/16 History metFORMIN HCL [Glucophage] 500 mg PO BID 04/13/16 10/31/16 History Fluticasone/Vilanterol [Breo 1 inhalation INHALATION RT-DAILY 10/31/16 10/31/16 History Ellipta 200-25 Mcg INH] Allergies Allergy/AdvReac Type Severity Reaction Status Date / Time No Known Allergies Allergy Verified 10/31/16 15:26 Physical Exam Vitals: Vital Signs Temp Pulse Pulse Resp BP BP Pulse Ox 11/01/16 12:21 88 11/01/16 12:11 80 11/01/16 11:30 97.9 F 71 16 110/69 11/01/16 08:00 16 11/01/16 05:29 97.7 F 59 L 16 114/68 98 10/31/16 19:25 98.1 F 75 17 102/64 95 10/31/16 16:58 97.2 F L 79 16 111/56 92 L 10/31/16 16:35 98.1 F 82 18 121/65 95 10/31/16 15:50 79 16 10/31/16 15:04 98.6 F 99 18 115/63 99 Intake and Output 10/31/16 11/01/16 11/01/16 22:59 06:59 14:59 Intake Total 0 800 Output Total 300 600 200 Balance -300 200 -200 Intake: Intake, IV Titration 800 Amount Sodium Chloride 0.9% 1, 800 000 ml @ 100 mls/hr IV . Q10H ONE Rx#:[id number] Oral 0 0 Output: Gastric Drainage 200 300 Urine 100 300 Stool 200 Other: Voiding Method Toilet # Voids 3 1 Weight 63.503 kg 63.503 kg Patient Weight 11/02/16 06:59 Weight 63.503 kg GENERAL EXAM: Alert, active, comfortable in no apparent distress. HEAD: Normocephalic. EYES: Normal reaction of pupils, equal size. NOSE: Nasogastric tube secured in place. Clear with pink turbinates. THROAT: No erythema or exudates. NECK: No masses, no JVD. CHEST: No chest wall deformity. LUNGS: Equal air entry with no crackles, wheeze, rhonchi or dullness. Diminished. CVS: S1 and S2 normal with no audible murmurs, regular rhythm. ABDOMEN: Soft, nontender, normal bowel sounds, no guarding or rigidity. Ostomy patent in the left lower quadrant. Stomal hernia noted. Ventral wall hernia noted. SPINE: No scoliosis or deformity SKIN: No rashes CENTRAL NERVOUS SYSTEM: No focal deficits, tone is normal in all 4 extremities. *Midis: There is no peripheral edema. No clubbing, no cyanosis. Peripheral pulses are intact. Results - Laboratory Findings CBC and BMP: 11/01/16 06:46 11/01/16 06:46 Abnormal lab findings: Abnormal Labs 10/31/16 11/01/16 11/01/16 20:45 00:40 06:46 Chloride 111 H Carbon Dioxide 20 L POC Glucose (mg/dL) 108 H 106 H AST 100 H ALT 99 H Total Protein 5.9 L Albumin 3.2 L Assessment and Plan Plan: Impression: #1 Abdominal pain with nausea and vomiting secondary to a small bowel obstruction secondary to ventral hernia incarceration. #2 History of benign colon mass status post bowel resection with end ostomy. #3 Ostomy hernia. #4 Ventral hernia. #5 Chronic obstructive pulmonary disease, currently inactive and stable. #6 Chronic and ongoing tobacco dependence. #7 History of alcoholism. #8 Arthritis. #9 History of depression. Plan: The patient was seen and evaluated by Dr. Menjivar. Her computed tomography scan and labs were reviewed. She is stable from the pulmonary standpoint. We' ll continue with her current medications including bronchodilators, Symbicort and Spiriva. She remains on Lovenox for DVT prophylaxis and Protonix for GI prophylaxis. Her NG tube remains in place. Surgical services are on the case as well. Her ostomy output has improved. No plans for intervention at this time. We will continue to follow and make further recommendations based on her clinical status. Time with Patient: Greater than 30
[2016-11-01] MEDS: NICOTINE 14MG/24HR PATCH TRANSDERM SCH (15:39)
--- NOTE | 2016-11-01 16:09 | XR ---
EXAMINATION TYPE: XR chest 1V portable DATE OF EXAM: 11/01/2016 HISTORY: COPD. REFERENCE: NONE. FINDINGS: There is an NG tube in place. Its tip is coiled in the stomach. There is increased opacity at the left lung base. This has the appearance of an infiltrate and likely represents pneumonia. This appears to be in the left lingula. The right lung is clear. Pleural space s are clear. The heart is upper limits of normal in size. IMPRESSION: I SUSPECT A LEFT LINGULAR INFILTRATE.
[2016-11-01 17:15] LABS: Glucose,Whole Blood 78 mg/dL (75-99)
[2016-11-01] MEDS ORDERED: DEXTROSE 5% IN WATER 1,000 ML IV ONE (17:45)
[2016-11-01] MEDS: DEXTROSE 5%-0.9% NACL 1,000 ML IV SCH (18:01)
[2016-11-01 21:20] LABS: Glucose,Whole Blood 101 mg/dL (75-99)
[2016-11-02 01:06] LABS: Glucose,Whole Blood 102 mg/dL (75-99)
[2016-11-02] MEDS: HYDROmorphone 1 MG/ML 1 ML SYRINGE IVP PRN ×5 (02:34→19:53)
[2016-11-02] MEDS: BENZOCAINE/MENTHOL LOZENG 1 EACH LOZENGE MUCOUS MEM PRN ×2 (03:32→10:35)
[2016-11-02] MEDS: DEXTROSE 5%-0.9% NACL 1,000 ML IV SCH ×2 (04:00→15:07)
[2016-11-02 06:35] LABS: Glucose,Whole Blood 131 mg/dL (75-99)
[2016-11-02 07:21] LABS: Glucose,Whole Blood 128 mg/dL (75-99)
[2016-11-02 07:21] LABS: Basophils % (A) 0 %; CH 28.9; CHCM 30.9; Eosinophils # (A) 0.1 k/uL (0-0.7); Eosinophils % (A) 2 %; HCT 42.5 % (34.0-46.0); HGB 13.3 gm/dL (11.4-16.0); Hypochromasia Slight; Luc # (Auto) 0.09; Luc % (Auto) 1; Lymphocytes # (A) 1.2 k/uL (1.0-4.8); Lymphocytes % (A) 19 %; MCH 29.6 pg (25.0-35.0); MCHC 31.4 g/dL (31.0-37.0); MCV 94.2 fL (80.0-100.0); Mean Platelet Volume 7.1; Monocytes # (A) 0.4 k/uL (0-1.0); Monocytes % (A) 6 %; Neutrophils # (A) 4.6 k/uL (1.3-7.7); Neutrophils % (A) 71 %; RBC 4.52 m/uL (3.80-5.40); RDW 15.4 % (11.5-15.5); WBC 6.5 k/uL (3.8-10.6); WBC (Perox) 6.98
[2016-11-02 07:29] LABS: ALT 79 U/L (9-52); AST 58 U/L (14-36); Alkaline Phosphatase 116 U/L (38-126); Anion Gap 5 mmol/L; Blood Urea Nitrogen 11 mg/dL (7-17); Calcium 8.2 mg/dL (8.4-10.2); Carbon Dioxide 22 mmol/L (22-30); Chloride 115 mmol/L (98-107); Glucose 124 mg/dL (74-99); Non-African American GFR(MDRD) >60 (>60 ml/min/1.73 sqM); Potassium 3.7 mmol/L (3.5-5.1); Sodium 142 mmol/L (137-145); Total Bilirubin 0.6 mg/dL (0.2-1.3); Total Protein 5.1 g/dL (6.3-8.2)
[2016-11-02] MEDS: INSULIN LISPRO (humaLOG) 300 UNIT/3 ML VIAL SQ SCH ×3 (07:42→19:52)
[2016-11-02] MEDS: NICOTINE 14MG/24HR PATCH TRANSDERM SCH (08:01)
[2016-11-02] MEDS: CITALOPRAM HYDROBROMIDE 20 MG TAB PO SCH (08:04)
[2016-11-02] MEDS: SYMBICORT 80-4.5 MCG INHALER INHALATION SCH ×2 (08:05→19:32)
[2016-11-02] MEDS: TIOTROPIUM 18 MCG/PUFF INHALER INHALATION SCH (08:05)
[2016-11-02] MEDS: ENOXAPARIN 40 MG/0.4 ML SYRINGE SQ SCH (08:14)
[2016-11-02] MEDS: PANTOPRAZOLE 40 MG/10 ML VIAL IVP SCH (08:49)
--- NOTE | 2016-11-02 09:49 | XR ---
EXAMINATION TYPE: XR abdomen 2V DATE OF EXAM: 11/02/2016 9:44 AM CLINICAL HISTORY: Abdominal pain TECHNIQUE: Single supine KUB image of the abdomen is obtained. COMPARISON: 04/23/2016. FINDINGS: Scattered gas is seen in non-distended small bowel loops. Fenestrate d portion of the enteric tube located just beyond the gastroesophageal junction within the region of the gastric fundus. Gas and fecal material is seen in non-distended colon. There is no visceromegaly, pneumoperitoneum, or abnormal calcification appreciated. The lung bases are clear and the osseous st ructures are intact. 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 Degenerative changes of the thoracolumbar spine are noted. IMPRESSION: Enteric tube with its fenestrated portion just beyond the gastroesophageal junction. Nono bstructive bowel gas pattern.
[2016-11-02] MEDS: ALBUTEROL NEBULIZED 2.5 MG/3 ML INHALATION PRN (11:25)
--- NOTE | 2016-11-02 12:32 | P.PN ---
Subjective 66-year-old female being seen on follow-up surgical visit. Patient's being seen by surgery at the request of the attending for abdominal pain. Currently patient has a nasal gastric tube in placed put out 150 mL last 8 hours. There is active movement in the ostomy liquid stool in ostomy bag. Patient states less abdominal pain. Patient did have a flat plate of the abdomen this morning. Results were reviewed by Dr. Powers. In summary the report shows a nonobstructive PATTERN. Did review the recommendations by pulmonary service. They are recommending the patient be evaluated in the outpatient setting for pulmonary function studies. Once again patient is been advised to stop smoking cigarettes. The patient's sister was at the bedside did update on the plan of care. Plan will be to clamp the nasogastric tube for 4 hours and check the residual if it's greater than 100 NG tube will be maintained if it's less than NG tube will be removed Objective - Vital Signs Vital signs: Vital Signs Temp 97.3 F L 11/02/16 01:14 Pulse 68 11/02/16 11:35 Resp 16 11/02/16 08:00 BP 101/59 11/02/16 01:14 Pulse Ox 91 L 11/02/16 01:14 Intake & Output 11/01/16 11/02/16 11/02/16 18:59 06:59 18:59 Intake Total 500 800 Output Total 1000 1075 Balance -500 -275 Weight 63.503 kg 63.503 kg Intake: IV 500 Sodium Chloride 0.9% 1, 500 000 ml @ 100 mls/hr IV . Q10H ONE Rx#:[id number] Intake, IV Titration 800 Amount Dextrose 5%-0.9% NaCl 1, 800 000 ml @ 100 mls/hr IV . Q10H [facility] Rx#:[id number] Output: Gastric Drainage 100 550 Urine 300 Stool 600 525 Other: Voiding Method Toilet Toilet # Voids 2 2 # Bowel Movements 150 - Exam Physical exam Very pleasant 66-year-old female who is currently resting comfortably in bed states there is a noted improvement in the abdominal pain. Nasal gastric tube in place Lungs bilateral adequate air entry no conversational dyspnea noted no cough noted no wheezing noted Heart S1-S2 audible regular denying chest pain Abdomen ostomy has noted improved output 150 ML's in the ostomy bag liquid stool few hypoactive bowel tones noted denying sensation of nausea no vomiting States abdominal pain improving no difficulty in urinating Extremities no edema noted - Labs CBC & Chem 7: 11/02/16 06:40 11/02/16 06:40 Labs: Abnormal Lab Results - Last 24 Hours (Table) 11/01/16 11/02/16 11/02/16 Range/Units 21:18 01:03 06:33 Chloride (98-107) mmol/L Glucose (74-99) mg/dL POC Glucose (mg/dL) 101 H 102 H 131 H (75-99) mg/dL Calcium (8.4-10.2) mg/dL AST (14-36) U/L ALT (9-52) U/L Total Protein (6.3-8.2) g/dL Albumin (3.5-5.0) g/dL 11/02/16 11/02/16 Range/Units 06:40 07:07 Chloride 115 H (98-107) mmol/L Glucose 124 H (74-99) mg/dL POC Glucose (mg/dL) 128 H (75-99) mg/dL Calcium 8.2 L (8.4-10.2) mg/dL AST 58 H (14-36) U/L ALT 79 H (9-52) U/L Total Protein 5.1 L (6.3-8.2) g/dL Albumin 2.8 L (3.5-5.0) g/dL Assessment and Plan Plan: Impression Present on admission abdominal pain with persistent nausea vomiting suspect due to partial small bowel obstruction resolving Type 2 diabetes non-insulin 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 Chronic and ongoing tobacco dependency COPD currently no evidence of an exacerbation Depressive disorder nonspecified Ventral wall hernia present on admission chronic History of several ventral wall hernias History of COPD with no evidence of an exacerbation Plan Continue IV hydration Clinical nasal gastric tube for 4 hours check residuals if less than 100 remove the nasogastric tube Increase activity Continue recommendations by pulmonary service DVT and GI prophylaxis Pain control No evidence of an acute surgical abdomen at this time Further surgical recommendations pending clinical course Patient has been advised to stop smoking cigarettes The above impression and plan of care have been discussed and directed by signing physician. Serenity Phelps nurse practitioner acting as scribe for signing physician.
[2016-11-02 14:08] LABS: Glucose,Whole Blood 129 mg/dL (75-99)
--- NOTE | 2016-11-02 15:40 | P.PN ---
Subjective This is a very pleasant 66-year-old female patient who has a history of diabetes mellitus, arthritis, alcoholism and depression with previous suicidal ideation. She also has a history of chronic obstructive disease with chronic and ongoing tobacco dependence. She is treated with Breo, Spiriva and albuterol. She stated these have been prescribed to her from previous admissions. She does not follow with a electrical prospecting observer in the outpatient setting. She also has a history of a benign rectal mass and is status post resection with diverting ostomy. He presented to [facility] with complaints of abdominal pain, nausea and vomiting. She does have abdominal hernias and a fistula. She had minimal output in her ostomy. She was transferred here for higher level of care for suspected bowel obstruction. She had been seen by surgical services and thus far conservative treatment. Nasogastric tube is in place. Ostomy has improved output. Her abdominal discomfort has subsided. Her NG tube is currently clamped. She is seen today in consultation on the surgical floor. She is currently awake and alert in no acute distress. She denies any worsening shortness of breath, cough or congestion. No wheezing, no dyspnea on exertion. She is maintaining good O2 saturations in the mid to upper 90s on room air. She's been afebrile. No leukocytosis. Hemoglobin stable. Hemodynamically stable. Elevated LFTs with AST 100, ALT of 99. The patient is seen again today 11/02/2016 in follow-up on the surgical floor. She is awake and alert in no acute distress. She denies any shortness of breath , cough or congestion. No significant dyspnea on exertion. Maintaining good O2 saturations in the 90s on room air. She is afebrile. No leukocytosis. Her nasogastric tube has been removed. She continues to have output in her ostomy. Her liver enzymes are improving. AST down to 58, ALT down to 79. Objective - Vital Signs Vital signs: Vital Signs Temp 97.8 F 11/02/16 14:50 Pulse 78 11/02/16 14:50 Resp 16 11/02/16 14:50 BP 131/74 11/02/16 14:50 Pulse Ox 94 L 11/02/16 14:50 Intake & Output 11/01/16 11/02/16 11/02/16 18:59 06:59 18:59 Intake Total 500 800 500 Output Total 1000 1075 Balance -500 -275 500 Weight 63.503 kg 63.503 kg Intake: IV 500 Sodium Chloride 0.9% 1, 500 000 ml @ 100 mls/hr IV . Q10H [facility] Rx#:[id number] Intake, IV Titration 800 500 Amount Dextrose 5%-0.9% NaCl 1, 800 500 000 ml @ 100 mls/hr IV . Q10H [facility] Rx#:[id number] Output: Gastric Drainage 100 550 Urine 300 Stool 600 525 Other: Voiding Method Toilet Toilet # Voids 2 2 # Bowel Movements 150 - Exam GENERAL EXAM: Alert, active, comfortable in no apparent distress. HEAD: Normocephalic. EYES: Normal reaction of pupils, equal size. NOSE: Nasogastric tube secured in place. Clear with pink turbinates. THROAT: No erythema or exudates. NECK: No masses, no JVD. CHEST: No chest wall deformity. LUNGS: Equal air entry with no crackles, wheeze, rhonchi or dullness. Diminished. CVS: S1 and S2 normal with no audible murmurs, regular rhythm. ABDOMEN: Soft, nontender, normal bowel sounds, no guarding or rigidity. Ostomy patent in the left lower quadrant. Stomal hernia noted. Ventral wall hernia noted. SPINE: No scoliosis or deformity SKIN: No rashes CENTRAL NERVOUS SYSTEM: No focal deficits, tone is normal in all 4 extremities. Extremities: There is no peripheral edema. No clubbing, no cyanosis. Peripheral pulses are intact. - Labs CBC & Chem 7: 11/02/16 06:40 11/02/16 06:40 Labs: Abnormal Lab Results - Last 24 Hours (Table) 11/01/16 11/02/16 11/02/16 Range/Units 21:18 01:03 06:33 Chloride (98-107) mmol/L Glucose (74-99) mg/dL POC Glucose (mg/dL) 101 H 102 H 131 H (75-99) mg/dL Calcium (8.4-10.2) mg/dL AST (14-36) U/L ALT (9-52) U/L Total Protein (6.3-8.2) g/dL Albumin (3.5-5.0) g/dL 11/02/16 11/02/16 11/02/16 Range/Units 06:40 07:07 13:28 Chloride 115 H (98-107) mmol/L Glucose 124 H (74-99) mg/dL POC Glucose (mg/dL) 128 H 129 H (75-99) mg/dL Calcium 8.2 L (8.4-10.2) mg/dL AST 58 H (14-36) U/L ALT 79 H (9-52) U/L Total Protein 5.1 L (6.3-8.2) g/dL Albumin 2.8 L (3.5-5.0) g/dL Assessment and Plan Plan: Impression: #1 Abdominal pain with nausea and vomiting secondary to a small bowel obstruction secondary to ventral hernia incarceration. #2 History of benign colon mass status post bowel resection with end ostomy. #3 Ostomy hernia. #4 Ventral hernia. #5 Chronic obstructive pulmonary disease, currently inactive and stable. #6 Chronic and ongoing tobacco dependence. #7 History of alcoholism. #8 Arthritis. #9 History of depression. Plan: The patient was seen and evaluated by Dr. Menjivar. She is stable from the pulmonary standpoint. We'll continue with her current medications including bronchodilators, Symbicort and Spiriva. She remains on Lovenox for DVT prophylaxis and Protonix for GI prophylaxis. She is again educated regarding the importance of complete smoking cessation. We will follow with the patient on as-needed basis.
[2016-11-02 19:52] LABS: Glucose,Whole Blood 119 mg/dL (75-99)
[2016-11-03 01:18] LABS: Glucose,Whole Blood 111 mg/dL (75-99)
[2016-11-03] MEDS: HYDROmorphone 1 MG/ML 1 ML SYRINGE IVP PRN ×2 (01:38→07:32)
[2016-11-03] MEDS: DEXTROSE 5%-0.9% NACL 1,000 ML IV SCH ×2 (01:43→08:20)
[2016-11-03] MEDS: INSULIN LISPRO (humaLOG) 300 UNIT/3 ML VIAL SQ SCH ×3 (01:44→15:10)
[2016-11-03 07:10] LABS: Glucose,Whole Blood 118 mg/dL (75-99)
[2016-11-03 07:16] LABS: Basophils % (A) 0 %; CH 29.2; CHCM 31.7; Eosinophils # (A) 0.1 k/uL (0-0.7); Eosinophils % (A) 2 %; HCT 37.3 % (34.0-46.0); HDW 2.32; HGB 12.2 gm/dL (11.4-16.0); Luc # (Auto) 0.11; Luc % (Auto) 2; Lymphocytes # (A) 1.3 k/uL (1.0-4.8); Lymphocytes % (A) 23 %; MCH 30.2 pg (25.0-35.0); MCHC 32.6 g/dL (31.0-37.0); MCV 92.5 fL (80.0-100.0); Mean Platelet Volume 7.7; Monocytes # (A) 0.3 k/uL (0-1.0); Monocytes % (A) 6 %; Neutrophils # (A) 3.8 k/uL (1.3-7.7); Neutrophils % (A) 68 %; RBC 4.03 m/uL (3.80-5.40); RDW 15.4 % (11.5-15.5); WBC 5.6 k/uL (3.8-10.6); WBC (Perox) 5.72
[2016-11-03 07:30] LABS: ALT 60 U/L (9-52); AST 36 U/L (14-36); Alkaline Phosphatase 100 U/L (38-126); Anion Gap 4 mmol/L; Blood Urea Nitrogen 4 mg/dL (7-17); Calcium 7.9 mg/dL (8.4-10.2); Carbon Dioxide 24 mmol/L (22-30); Chloride 112 mmol/L (98-107); Glucose 102 mg/dL (74-99); Non-African American GFR(MDRD) >60 (>60 ml/min/1.73 sqM); Potassium 3.5 mmol/L (3.5-5.1); Sodium 140 mmol/L (137-145); Total Bilirubin 0.7 mg/dL (0.2-1.3); Total Protein 4.7 g/dL (6.3-8.2)
[2016-11-03] MEDS: PANTOPRAZOLE 40 MG/10 ML VIAL IVP SCH (08:20)
[2016-11-03] MEDS: CITALOPRAM HYDROBROMIDE 20 MG TAB PO SCH (08:20)
[2016-11-03] MEDS: NICOTINE 14MG/24HR PATCH TRANSDERM SCH (08:21)
[2016-11-03] MEDS: ENOXAPARIN 40 MG/0.4 ML SYRINGE SQ SCH (08:21)
[2016-11-03] MEDS: ALBUTEROL NEBULIZED 2.5 MG/3 ML INHALATION PRN (08:50)
[2016-11-03] MEDS: SYMBICORT 80-4.5 MCG INHALER INHALATION SCH (08:53)
[2016-11-03] MEDS: TIOTROPIUM 18 MCG/PUFF INHALER INHALATION SCH (08:54)
--- NOTE | 2016-11-03 09:54 | PN ---
SUBJECTIVE: 66 year old white female with small bowel obstruction. She remains NG tube in place with a large amount of NG tube drainage. Her morphine will be switched to IV Dilaudid as her Morphine is not causing pain control. Vital signs reviewed. Possible surgery for small bowel obstruction and ventral hernia repair. Right side of the colostomy are will be done. Abdomen is softer today with increased bowel sounds and 3 x 7 cm x 5 cm ventral hernia right side of the colostomy bag. Continue current treatment. NG tube will be continued. MTDD
--- NOTE | 2016-11-03 10:08 | P.PN ---
Subjective 66-year-old female being seen on rounds this morning. Nasogastric tube was pulled yesterday patient is tolerating ice chips asking for something to eat. Patient's denying any abdominal pain or epigastric pain when questioning did note that there is a moderate amount of liquid stool in the ostomy bag starting to form. Denies any nausea vomiting. States has been up ambulating in the [place] anxious to be discharged Objective - Vital Signs Vital signs: Vital Signs Temp 97.6 F 11/03/16 08:28 Pulse 72 11/03/16 09:07 Resp 18 11/03/16 08:28 BP 99/66 11/03/16 08:28 Pulse Ox 97 11/03/16 08:28 Intake & Output 11/02/16 11/03/16 11/03/16 18:59 06:59 18:59 Intake Total 500 100 Output Total 300 500 Balance 200 -400 Weight 63.503 kg Intake: Intake, IV Titration 500 Amount Dextrose 5%-0.9% NaCl 1, 500 000 ml @ 100 mls/hr IV . Q10H [facility] Rx#:[id number] Oral 100 Output: Urine 300 500 Other: Voiding Method Toilet # Voids 2 - Exam Physical exam 66-year-old female sitting up in bed talkative family member at the bedside states abdominal pain gone no nausea no vomiting anxious to eat something Lungs essentially clear adequate air movement not able to appreciate any wheezing no shortness of breath noted no cough noted Heart S1-S2 audible and regular denying chest pain when questioning Abdomen soft bowel tones present ostomy left lower quadrant about 150cc noted in ostomy bag liquid stool starting to form stoma pink no nausea no vomiting states urinating no difficulty Extremities no edema noted. - Labs CBC & Chem 7: 11/03/16 06:51 11/03/16 06:51 Labs: Abnormal Lab Results - Last 24 Hours (Table) 11/02/16 11/02/16 11/03/16 Range/Units 13:28 19:50 01:12 Plt Count (150-450) k/uL Chloride (98-107) mmol/L BUN (7-17) mg/dL Glucose (74-99) mg/dL POC Glucose (mg/dL) 129 H 119 H 111 H (75-99) mg/dL Calcium (8.4-10.2) mg/dL ALT (9-52) U/L Total Protein (6.3-8.2) g/dL Albumin (3.5-5.0) g/dL 11/03/16 11/03/16 11/03/16 Range/Units 06:51 06:51 06:56 Plt Count 141 L (150-450) k/uL Chloride 112 H (98-107) mmol/L BUN 4 L (7-17) mg/dL Glucose 102 H (74-99) mg/dL POC Glucose (mg/dL) 118 H (75-99) mg/dL Calcium 7.9 L (8.4-10.2) mg/dL ALT 60 H (9-52) U/L Total Protein 4.7 L (6.3-8.2) g/dL Albumin 2.5 L (3.5-5.0) g/dL Assessment and Plan Plan: Impression Present on admission abdominal pain with persistent nausea vomiting suspect due to partial small bowel obstruction resolving Type 2 diabetes non-insulin 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 Chronic and ongoing tobacco dependency COPD currently no evidence of an exacerbation Depressive disorder nonspecified Ventral wall hernia present on admission chronic History of several ventral wall hernias History of COPD with no evidence of an exacerbation Hypokalemia corrected Plan Continue IV hydration Soft diet to be initiated if tolerated from a surgical perspective patient is felt to be clinically stable to be discharged defer to the timing of the discharge to medicine service Increase activity Continue recommendations by pulmonary service DVT and GI prophylaxis Pain control No evidence of an acute surgical abdomen at this time Patient has been advised to stop smoking cigarettes Patient be followed in the outpatient setting in [address] Brooks once discharged The above impression and plan of care have been discussed and directed by signing physician. Serenity Phelps nurse practitioner acting as scribe for signing physician.
[2016-11-03] MEDS ORDERED: FAMOTIDINE 20 MG TAB PO SCH (10:15)
[2016-11-03 11:27] LABS: Glucose,Whole Blood 172 mg/dL (75-99)
--- NOTE | 2016-11-03 11:31 | P.DS ---
Providers Date of admission: 10/31/16 15:00 Expected date of discharge: 11/03/16 Attending physician: Andrea De Jesus Consults: 10/31/16 15:00 Consult Physician Routine Consulting Provider: Lila Garrido Consult Reason/Comments: known Do you want consulting provider notified?: Yes 11/01/16 12:24 Consult Physician Urgent Consulting Provider: Xiao Menjivar Consult Reason/Comments: Pulmonary management COPD Do you want consulting provider notified?: Yes Primary care physician: Stated None Hospital Course: This is a 66-year-old female who was admitted on 10/31/2016 for small bowel obstruction. The patient has a history of a benign rectal mass and underwent a bowel resection with end ileostomy and 1999. The patient also has a history of type 2 diabetes, COPD, tobacco abuse, and depression. Surgery was consulted. An NG tube was placed and over the course of her hospitalization her bowel obstruction resolved and her ostomy began to have improved output. Her abdominal pain and also subsided and she is currently feeling well. She is tolerating a soft diet. She denies any nausea or vomiting. She has been ambulating in the hallways. She is cleared from a surgical standpoint for discharge. Dr. De Jesus feels the patient is stable and may be discharged from the hospital today. Discharge diagnosis: 1. Abdominal pain, present on admission, due to bowel obstruction, resolved 2. Bowel obstruction, present on admission, acute, resolved at time of discharge 3. History of diabetes mellitus type 2 4. History of COPD, no evidence of an acute exacerbation 5. History of several ventral wall hernias 6. History of a benign rectal mass bowel resection with end ileostomy in 1999 The above impression and plan of care have been discussed and directed by signing physician. Suad Martinez, nurse practitioner, acting as scribe for signing physician. Patient Condition at Discharge: Good Plan - Discharge Summary New Discharge Prescriptions: Continue metFORMIN HCL [Glucophage] 500 mg PO BID Tiotropium 18 Mcg/Puff [Spiriva] 1 cap INHALATION RT-DAILY Mirtazapine [Remeron] 15 mg PO HS Citalopram Hydrobromide [CeleXA] 40 mg PO DAILY Albuterol Inhaler [Ventolin Hfa Inhaler] 1 - 2 puff INHALATION RT-Q4H PRN PRN Reason: Shortness Of Breath Fluticasone/Vilanterol [Breo Ellipta 200-25 Mcg INH] 1 inhalation INHALATION RT-DAILY Discharge Medication List Albuterol Inhaler [Ventolin Hfa Inhaler] 1 - 2 puff INHALATION RT-Q4H PRN [History] Citalopram Hydrobromide [CeleXA] 40 mg PO DAILY 04/13/16 [History] Mirtazapine [Remeron] 15 mg PO HS 04/13/16 [History] Tiotropium 18 Mcg/Puff [Spiriva] 1 cap INHALATION RT-DAILY 04/13/16 [History] metFORMIN HCL [Glucophage] 500 mg PO BID 04/13/16 [History] Fluticasone/Vilanterol [Breo Ellipta 200-25 Mcg INH] 1 inhalation INHALATION RT- DAILY 10/31/16 [History] Follow up Appointment(s)/Referral(s): Lila Garrido MD [STAFF PHYSICIAN] - 2 Weeks Andrea De Jesus MD [STAFF PHYSICIAN] - 3 Days Discharge Disposition: HOME SELF-CARE
[2016-11-03 14:16] VITALS: BP 102/55; PULSE 71; RESP 16; TEMP 97.4
[2016-11-03] MEDS ORDERED: HYDROcodone/APAP 5-325MG 1 EACH TAB PO STA (15:09)
--- NOTE | 2016-11-03 18:03 | PN ---
PROGRESS NOTE Date of Service: SUBJECTIVE: 66-year-old, white female, admitted with small-bowel obstruction. Possible surgery will be needed today. She has decompression from a lot of NG tube fluid coming out the NG tube. Possible surgical intervention will be done and ventral hernia repair by her surgeon. Please see further orders. MMODL / IJN: [id number] /
== END 2016-11-03 16:40 | disposition home or self-care (01) | DRG 394 ==
LOC: EC 14:55 → 3SUR 15:00
PROVIDERS: ADMIT Family Medicine; ATTEND Family Medicine
DX: K43.6 Other and unspecified ventral hernia with obstruction, without gangrene (principal); K94.09 Other complications of colostomy; J44.9 Chronic obstructive pulmonary disease, unspecified; F32.9 Major depressive disorder, single episode, unspecified; E11.9 Type 2 diabetes mellitus without complications; E87.6 Hypokalemia; F17.210 Nicotine dependence, cigarettes, uncomplicated; G47.30 Sleep apnea, unspecified; K58.9 Irritable bowel syndrome, unspecified; M19.90 Unspecified osteoarthritis, unspecified site; F10.20 Alcohol dependence, uncomplicated; Z79.84 Long term (current) use of oral hypoglycemic drugs; Z79.899 Other long term (current) drug therapy; Y83.3 Surgical operation with formation of external stoma as the cause of abnormal reaction of the patient, or of later complication, without mention of misadventure at the time of the procedure
CPT/HCPCS: 71010; 74020; 76700; 80053; 83690; 83735; 85025; 93005; 94640; 96361; 96374; 99285